=== PATIENT | female | born 1960 | race American Indian/Alaskan Native ===

== ENCOUNTER 2016-12-14 06:17 | Emergency (ER) | payer BC ==
[2016-12-14] MEDS ORDERED: DUONEB *Not for PRN Use IH ONE ×2 (06:30→06:36)
--- NOTE | 2016-12-14 07:26 | XRay Report ---
ROUTINE CHEST, TWO VIEWS: HISTORY: Productive cough, asthma. The trachea, heart, mediastinal contour, lung nunez and bony thorax are unremarkable. IMPRESSION: Unremarkable chest x-ray.
--- NOTE | 2016-12-14 07:43 | Emergency Department Report ---
ED Asthma HPI - General Chief Complaint: Adult Asthma Stated Complaint: SOB Time Seen by Provider: 12/14/16 07:36 Source: patient Mode of arrival: Ambulatory Limitations: No Limitations - History of Present Illness MD Complaint: "asthma attack" -: Gradual, days(s) Asthma History: adult onset Severity: mild Context: other (dust) Associated Symptoms: productive cough (yellow). denies: dry cough, fever, chest pain, hemoptysis, leg edema, syncope Treatments Prior to Arrival: inhaled bronchodilator - Related Data Current Asthma Therapy: inhaled bronchodilator, inhaled steroid Previous Rx's Medication Instructions Recorded Last Taken Type Azithromycin [Zithromax Z-ELSY] 250 mg PO DAILY #6 tablet 12/14/16 Unknown Rx predniSONE [Deltasone] 20 mg PO QDAY #5 tab 12/14/16 Unknown Rx Allergies Allergy/AdvReac Type Severity Reaction Status Date / Time No Known Allergies Allergy Verified 12/14/16 06:35 ED Review of Systems ROS: Stated complaint: SOB Other details as noted in HPI Comment: All other systems reviewed and negative Constitutional: no symptoms reported, see HPI. denies: chills, fever Eyes: as per HPI. denies: eye pain ENT: as per HPI. denies: ear pain, throat pain, dental pain, hearing loss, epistaxis Respiratory: no symptoms reported, see HPI, cough. denies: orthopnea, shortness of breath, SOB with exertion, SOB at rest, stridor, wheezing Cardiovascular: as per HPI. denies: chest pain, palpitations, dyspnea on exertion, orthopnea, edema, syncope, paroxysmal nocturnal dyspnea Endocrine: no symptoms reported, see HPI. denies: excessive sweating, flushing , intolerance to cold, intolerance to heat Gastrointestinal: as per HPI. denies: abdominal pain, nausea, vomiting Genitourinary: as per HPI. denies: urgency, dysuria Musculoskeletal: as per HPI. denies: back pain Skin: as per HPI. denies: rash, lesions Neurological: as per HPI. denies: headache, weakness Psychiatric: as per HPI. denies: anxiety, depression Hematological/Lymphatic: as per HPI. denies: easy bleeding ED Past Medical Hx - Past Medical History Previous Medical History?: Yes Hx Psychiatric Treatment: Yes (Depression, ADHD) Hx Asthma: Yes Additional medical history: HypoThyroid - Surgical History Past Surgical History?: Yes Additional Surgical History: Tonsils. Skin Grafts - Social History Smoking Status: Never Smoker Substance Use Type: Alcohol - Medications Home Medications: Home Medications Medication Instructions Recorded Confirmed Last Taken Type Azithromycin [Zithromax Z-ELSY] 250 mg PO DAILY #6 tablet 12/14/16 Unknown Rx predniSONE [Deltasone] 20 mg PO QDAY #5 tab 12/14/16 Unknown Rx ED Physical Exam - General Limitations: No Limitations General appearance: alert, in no apparent distress - Head Head exam: Present: atraumatic - Eye Eye exam: Present: PERRL - ENT ENT exam: Present: normal exam, mucous membranes moist - Neck Neck exam: Present: normal inspection - Respiratory Respiratory exam: Present: normal lung sounds bilaterally. Absent: respiratory distress, wheezes, rales, rhonchi, stridor, chest wall tenderness, accessory muscle use, decreased breath sounds, prolonged expiratory - Cardiovascular Cardiovascular Exam: Present: regular rate, normal rhythm. Absent: bradycardia , tachycardia, irregular rhythm - GI/Abdominal GI/Abdominal exam: Present: soft - Rectal Rectal exam: Present: deferred - Extremities Exam Extremities exam: Present: normal inspection - Back Exam Back exam: Present: normal inspection, full ROM. Absent: tenderness, CVA tenderness (R) - Neurological Exam Neurological exam: Present: alert, oriented X3 - Psychiatric Psychiatric exam: Present: normal affect, normal mood - Skin Skin exam: Present: warm, dry, intact ED Course Vital Signs 12/14/16 12/14/16 06:17 08:02 Temperature 98.6 F Pulse Rate 78 69 Respiratory 20 18 Rate Blood Pressure 158/101 140/91 [Right] O2 Sat by Pulse 99 100 Oximetry - Reevaluation(s) Reevaluation #1: 12/14/16 07:39 RT tx given before THIEN saw pt on exam CTA 3 d hx of inc in asthma s/s cough no yellow sputum triggered by dust in her home while cleaning no fever non toxic taking home meds sees pcp routine has seen pulmonology in past no cp no sob sat 100 ra solumedrol IM home w dc fu Reevaluation #2: 12/14/16 07:44 nurses to recheck vs a dc Critical care attestation.: If time is entered above; I have spent that time in minutes in the direct care of this critically ill patient, excluding procedure time. ED Disposition Clinical Impression: Asthma, Upper respiratory infection Disposition: DC-01 TO HOME OR SELFCARE Is pt being admited?: No Does the pt Need Aspirin: No Condition: Stable Instructions: Asthma (ED) Additional Instructions: rest fluids meds as ordered follow up pulmonology as discussed avoid triggers continue home meds Prescriptions: Azithromycin [Zithromax Z-ELSY] 250 mg PO DAILY #6 tablet predniSONE [Deltasone] 20 mg PO QDAY #5 tab Referrals: PRIMARY CAREMD [Primary Care Provider] - 3-5 Days CRISTOPHER HIDALGO MD [Staff Physician] - 3-5 Days Time of Disposition: 07:41
[2016-12-14 08:03] VITALS: BP 140/91
== END 2016-12-14 08:39 | disposition home or self-care (01) ==
LOC: ED 06:17
DX: J45.909 Unspecified asthma, uncomplicated (principal); J06.9 Acute upper respiratory infection, unspecified; F90.9 Attention-deficit hyperactivity disorder, unspecified type; F32.9 Major depressive disorder, single episode, unspecified
CPT/HCPCS: 71020; 94640; 96372; 99283; J2930